=== PATIENT | male | born 1975 | race African-American/Black ===

== ENCOUNTER 2018-11-01 18:34 | Inpatient (IN) | payer OTHER ==
[~2018-11-01] VITALS: Ht 175.3 cm; Wt 76.2 kg
[2018-11-01] MEDS ORDERED: IV NORMAL SALINE 1000ML BAG 1,000 ML IV ONE ×3 (19:30→21:30)
[2018-11-01 19:33] LABS: BASO # 0.1 x10^3/uL (0.0-0.2); BASO % 1 % (0-3); EOS # 0.1 x10^3/uL (0.0-0.7); EOS % 1 % (0-3); HEMATOCRIT 45.5 % (39.0-53.0); LYMPH # 2.3 x10^3/uL (1.0-4.8); LYMPH % 17 % (24-48); MEAN CORPUSCULAR HEMOGLOBIN 31 pg (25-35); MEAN CORPUSCULAR HGB CONC 33 g/dL (31-37); MEAN CORPUSCULAR VOLUME 93 fL (79-100); MONO # 0.8 x10^3/uL (0.0-1.1); MONO % 6 % (0-9); NEUT # 10.9 x10^3/uL (1.8-7.7); NEUT % 77 % (31-73); PLATELET COUNT 552 x10^3/uL (140-400); RED BLOOD COUNT 4.89 x10^6/uL (4.30-5.70); RED CELL DISTRIBUTION WIDTH 15.1 % (11.5-14.5); WHITE BLOOD COUNT 14.2 x10^3/uL (4.0-11.0)
[2018-11-01 19:36] LABS: BILIRUBIN,URINE NEGATIVE (NEG); CLARITY,URINE CLEAR; COLOR,URINE YELLOW; NITRITE,URINE NEGATIVE (NEG); PROTEIN,URINE NEGATIVE (NEG-TRACE); UROBILINOGEN,URINE 0.2 mg/dL (0.2 mg/dL)
[2018-11-01 19:44] LABS: AMPHETAMINE/METHAMPHETAMINE NEG (NEG); BARBITURATES NEG (NEG); BENZODIAZEPINES NEG (NEG); CANNABINOIDS NEG (NEG); COCAINE NEG (NEG); METHADONE NEG (NEG); OPIATES NEG (NEG); PHENCYCLIDINE NEG (NEG)
[2018-11-01 19:51] LABS: BACTERIA,URINE 0 /HPF (0-FEW); RBC,URINE 0 /HPF (0-2); WBC,URINE 0 /HPF (0-4)
--- NOTE | 2018-11-01 20:01 | PHYS DOC ---
Past Medical History Past Medical History: Hypertension, Pancreatitis, Seizure Additional Past Medical Histor: PT DENIES (DANYA CHU APRN) Past Surgical History: No Surgical History Additional Past Surgical Histo: PT DENIES (DANYA CHU APRN) Alcohol Use: Occasionally Drug Use: None Social History Narrative: OLAMIDE STATES HE HAS NOT HAD A DRINK SINCE October (DANYA CHU APRN) Adult General Chief Complaint Chief Complaint: HYPERGLYCEMIA HPI HPI Patient is a 43 year old male with history of otitis, hypertension, alcohol abuse, seizures, who presents to the ED today to be evaluated for hyperglycemia, patient states he received a call from his doctor's office informing him his blood glucose was 1000, blood glucose was drawn yesterday. Patient denies the use of alcohol 10/17/2018. He states last week he was admitted at [facility] for pancreatitis. Denies any symptoms right now. (DANYA CHU APRN) Review of Systems Review of Systems Constitutional: Denies fever or chills [] Eyes: Denies change in visual acuity, redness, or eye pain [] HENT: Denies nasal congestion or sore throat [] Respiratory: Denies cough or shortness of breath [] Cardiovascular: No additional information not addressed in HPI [] GI: Denies abdominal pain, nausea, vomiting, bloody stools or diarrhea [] : Denies dysuria or hematuria [] Musculoskeletal: Denies back pain or joint pain [] Integument: Denies rash or skin lesions [] Neurologic: Denies headache, focal weakness or sensory changes [] Endocrine: Reports hyperglycemia All other systems were reviewed and found to be within normal limits, except as documented in this note. (DANYA CHU APRN) Current Medications Current Medications Current Medications Medications (Trade) Dose Ordered Sig/Juliann Start Time Stop Time Status Last Admin Dose Admin Insulin Human Regular 150 unit/ Sodium Chloride 151.5 ml @ 0 mls/hr CONT PRN PRN 11/01/18 21:15 11/02/18 14:51 DC 11/01/18 21:49 25.8 MLS/HR Potassium Chloride/Water 100 ml @ 100 mls/hr PRN Q1HR PRN 11/01/18 21:15 11/02/18 14:51 DC Sodium Chloride 1,000 ml @ 1,000 mls/hr 1X ONCE 11/01/18 21:30 11/01/18 22:29 DC 11/01/18 21:30 1,000 MLS/HR (RADHA LEAL MD) Physical Exam Physical Exam Constitutional: Well developed, well nourished, no acute distress, non-toxic appearance. [] HENT: Normocephalic, atraumatic, bilateral external ears normal, oropharynx moist, no oral exudates, nose normal. [] Eyes: PERRLA, EOMI, conjunctiva normal, no discharge. [] Neck: Normal range of motion, no tenderness, supple, no stridor. [] Cardiovascular:Heart rate regular rhythm, no murmur [] Lungs & Thorax: Bilateral breath sounds clear to auscultation [] Abdomen: Bowel sounds normal, soft, no tenderness, no masses, no pulsatile masses. [] Skin: Warm, dry, no erythema, no rash. [] Back: No tenderness, no CVA tenderness. [] Extremities: No tenderness, no cyanosis, no clubbing, ROM intact, no edema. [] Neurologic: Alert and oriented X 3, normal motor function, normal sensory function, no focal deficits noted. [] Psychologic: Affect normal, judgement normal, mood normal. [] (DANYA CHU APRN) Current Patient Data Vital Signs Vital Signs Date Time Temp Pulse Resp B/P (MAP) Pulse Ox O2 Delivery O2 Flow Rate FiO2 11/01/18 21:39 76 134/91 (105) 95 Room Air 11/01/18 20:09 18 11/01/18 18:44 97.7 97.7 (RADHA LEAL MD) Lab Values Laboratory Tests Test 11/01/18 18:50 White Blood Count 14.2 x10^3/uL (4.0-11.0) H Red Blood Count 4.89 x10^6/uL (4.30-5.70) Hemoglobin 15.0 g/dL (13.0-17.5) Hematocrit 45.5 % (39.0-53.0) Mean Corpuscular Volume 93 fL (79-100) Mean Corpuscular Hemoglobin 31 pg (25-35) Mean Corpuscular Hemoglobin Concent 33 g/dL (31-37) Red Cell Distribution Width 15.1 % (11.5-14.5) H Platelet Count 552 x10^3/uL (140-400) H Neutrophils (%) (Auto) 77 % (31-73) H Lymphocytes (%) (Auto) 17 % (24-48) L Monocytes (%) (Auto) 6 % (0-9) Eosinophils (%) (Auto) 1 % (0-3) Basophils (%) (Auto) 1 % (0-3) Neutrophils # (Auto) 10.9 x10^3/uL (1.8-7.7) H Lymphocytes # (Auto) 2.3 x10^3/uL (1.0-4.8) Monocytes # (Auto) 0.8 x10^3/uL (0.0-1.1) Eosinophils # (Auto) 0.1 x10^3/uL (0.0-0.7) Basophils # (Auto) 0.1 x10^3/uL (0.0-0.2) Urine Collection Type Unknown Urine Color Yellow Urine Clarity Clear Urine pH 5.0 Urine Specific [place] 1.025 Urine Protein Negative mg/dL (NEG-TRACE) Urine Glucose (UA) >=1000 mg/dL (NEG) Urine Ketones (Stick) Negative mg/dL (NEG) Urine Blood Negative (NEG) Urine Nitrite Negative (NEG) Urine Bilirubin Negative (NEG) Urine Urobilinogen Dipstick 0.2 mg/dL (0.2 mg/dL) Urine Leukocyte Esterase Negative (NEG) Urine RBC 0 /HPF (0-2) Urine WBC 0 /HPF (0-4) Urine Bacteria 0 /HPF (0-FEW) Sodium Level 107 mmol/L (136-145) *L Potassium Level 5.2 mmol/L (3.5-5.1) H Chloride Level 73 mmol/L (98-107) L Carbon Dioxide Level 17 mmol/L (21-32) L Anion Gap 17 (6-14) H Blood Urea Nitrogen 49 mg/dL (8-26) H Creatinine 2.7 mg/dL (0.7-1.3) H Estimated GFR (Cockcroft-Gault) 31.7 BUN/Creatinine Ratio 18 (6-20) Glucose Level 1352 mg/dL (70-99) *H Calcium Level 8.9 mg/dL (8.5-10.1) Phosphorus Level 4.1 mg/dL (2.6-4.7) Magnesium Level 2.4 mg/dL (1.8-2.4) Total Bilirubin 0.3 mg/dL (0.2-1.0) Aspartate Amino Transferase (AST) 22 U/L (15-37) Alanine Aminotransferase (ALT) 33 U/L (16-63) Alkaline Phosphatase 102 U/L (46-116) Total Protein 7.5 g/dL (6.4-8.2) Albumin 3.7 g/dL (3.4-5.0) Albumin/Globulin Ratio 1.0 (1.0-1.7) Lipase 317 U/L (73-393) Urine Opiates Screen Neg (NEG) Urine Methadone Screen Neg (NEG) Urine Barbiturates Neg (NEG) Urine Phencyclidine Screen Neg (NEG) Urine Amphetamine/Methamphetamine Neg (NEG) Urine Benzodiazepines Screen Neg (NEG) Urine Cocaine Screen Neg (NEG) Urine Cannabinoids Screen Neg (NEG) Ethyl Alcohol Level < 10 mg/dL (0-10) Urine Ethyl Alcohol Neg (NEG) Laboratory Tests 11/01/18 18:50 Laboratory Tests 11/01/18 18:50 (RADHA LEAL MD) EKG EKG [] (DANYA CHU APRN) Radiology/Procedures Radiology/Procedures [] (DANYA CHU APRN) Course & Med Decision Making Course & Med Decision Making Pertinent Labs and Imaging studies reviewed. (See chart for details) This is a 43-year-old male patient who presents to the ED today to be evaluated for hyperglycemia, patient's blood glucose was drawn yesterday at the PCPs office and it was 1000, patient has no previous history of diabetes. CBC with a WBC of 14.2, CMP with glucose of 1352, anion gap 17, BUN 59, creatinine 2.7, potassium 5.2, sodium 107 but corrected sodium around 300s. Urine analysis is negative for infection, negative for ketones. Patient was given 2 L of IV fluids on arrival to the ED. Third liter running. Labs were discussed with . Insulin drip ordered. Spoke with Dr. You who accepted patient for admission. (DANYA CHU APRN) Course & Med Decision Making Staff Physician Addendum: I was working in the ER during the course of this patient's visit. I was available for consultation as needed, but I was not directly involved in the care of this patient. Corrected sodium was actually around 130. appears hhnk not dka (RADHA LEAL MD) Dragon Disclaimer Dragon Disclaimer This electronic medical record was generated, in whole or in part, using a voice recognition dictation system. (DANYA CHU APRN) Departure Departure Impression: Primary Impression: Hyperglycemia Additional Impression: Acute renal failure Disposition: ADMITTED INPATIENT Condition: STABLE Referrals: NON,STAFF (PCP) Problem Qualifiers Additional Impression: Acute renal failure Acute renal failure type: unspecified Qualified Codes: N17.9 - Acute kidney failure, unspecified DANYA CHU APRN Nov 01, 2018 20:01 RADHA LEAL MD Nov 03, 2018 05:24
[2018-11-01 20:44] LABS: ALBUMIN 3.7 g/dL (3.4-5.0); CALCIUM 8.9 mg/dL (8.5-10.1); CREATININE 2.7 mg/dL (0.7-1.3); GFR 31.7; POTASSIUM 5.2 mmol/L (3.5-5.1); TOTAL BILIRUBIN 0.3 mg/dL (0.2-1.0); TOTAL PROTEIN 7.5 g/dL (6.4-8.2)
[2018-11-01] MEDS ORDERED: POTASSIUM CHLORIDE 10MEQ 100 ML IV PRN (21:15)
[2018-11-01] MEDS ORDERED: INSULIN REGULAR VIAL 150 UNIT in 0.9 % SODIUM CHLORIDE 150ML 150 ML IV PRN (21:15)
[2018-11-01] MEDS ORDERED: ACETAMINOPHEN 325 MG TABLET. PO PRN (22:00)
[2018-11-01] MEDS ORDERED: IV NORMAL SALINE 1000ML BAG 1,000 ML IV SCH (22:00)
[2018-11-01] MEDS ORDERED: MORPHINE SULFATE 2 MG/ML VIAL. IV PRN (22:00)
[2018-11-01] MEDS ORDERED: ONDANSETRON PF 4 MG/2 ML VIAL. IV PRN (22:00)
[2018-11-01] MEDS: POTASSIUM CHLORIDE 10MEQ 100 ML IV PRN ×3 (22:11→22:12)
[2018-11-01 22:29] LABS: MAGNESIUM 2.4 mg/dL (1.8-2.4); PHOSPHORUS 4.1 mg/dL (2.6-4.7)
[2018-11-01 23:15] VITALS: BP 151/85
--- NOTE | 2018-11-01 23:15 | NUR ---
patient on unit, brought from ED on bed and and accompanied by Hamida ED RN. Pt in DKA protocol, ordered by ED practitioner. Pt's at bedside at time of admission. Admission questions completed with the exception of the medication reconciliation as the patient could not remember his medications.
[2018-11-02] VITALS (17 sets, daily range): BP systolic 105–156; BP diastolic 71–111
[2018-11-02 00:06] LABS: CALCIUM 8.9 mg/dL (8.5-10.1); CREATININE 2.2 mg/dL (0.7-1.3); GFR 40.1; MAGNESIUM 2.4 mg/dL (1.8-2.4); POTASSIUM 3.5 mmol/L (3.5-5.1)
[2018-11-02] MEDS ORDERED: SODIUM PHOSPHATE 20 MMOL in IV DEXTROSE 5% 250 ML IV PRN (00:15)
[2018-11-02] MEDS: POTASSIUM CHLORIDE 10MEQ 100 ML IV PRN ×4 (00:36→03:27)
[2018-11-02] MEDS: IV DEXTROSE 5% - 0.9 % NACL 1,000 ML IV SCH ×3 (03:18→11:24)
[2018-11-02 06:32] LABS: BASO # 0.1 x10^3/uL (0.0-0.2); BASO % 0 % (0-3); EOS # 0.2 x10^3/uL (0.0-0.7); EOS % 1 % (0-3); HEMATOCRIT 40.7 % (39.0-53.0); LYMPH # 3.1 x10^3/uL (1.0-4.8); LYMPH % 25 % (24-48); MEAN CORPUSCULAR HEMOGLOBIN 29 pg (25-35); MEAN CORPUSCULAR HGB CONC 34 g/dL (31-37); MEAN CORPUSCULAR VOLUME 85 fL (79-100); MONO # 0.7 x10^3/uL (0.0-1.1); MONO % 6 % (0-9); NEUT # 8.4 x10^3/uL (1.8-7.7); NEUT % 68 % (31-73); PLATELET COUNT 487 x10^3/uL (140-400); RED BLOOD COUNT 4.78 x10^6/uL (4.30-5.70); RED CELL DISTRIBUTION WIDTH 14.6 % (11.5-14.5); WHITE BLOOD COUNT 12.5 x10^3/uL (4.0-11.0)
[2018-11-02 06:55] LABS: CALCIUM 8.1 mg/dL (8.5-10.1); CREATININE 1.5 mg/dL (0.7-1.3); GFR 62.4; POTASSIUM 3.1 mmol/L (3.5-5.1)
[2018-11-02] MEDS: POTASSIUM CHLORIDE 10MEQ 100 ML IV SCH ×4 (07:46→11:24)
[2018-11-02] MEDS ORDERED: IV NORMAL SALINE 1000ML BAG 1,000 ML IV SCH (09:00)
[2018-11-02] MEDS ORDERED: THIAMINE INJ 100 MG in IV DEXTROSE 5% 50 ML IV SCH (09:00)
[2018-11-02] MEDS ORDERED: AMLO10TA8 PO (09:12)
[2018-11-02] MEDS ORDERED: THIA100T22 PO (09:12)
[2018-11-02] MEDS ORDERED: MIRT15TA3 PO (09:12)
[2018-11-02] MEDS ORDERED: CARV25TA2 PO (09:12)
[2018-11-02] MEDS ORDERED: LOSA100T14 PO (09:12)
[2018-11-02] MEDS ORDERED: HYDR12.58 PO (09:12)
[2018-11-02 10:28] LABS: CREATININE 1.3 mg/dL (0.7-1.3); GFR 73.6; POTASSIUM 3.5 mmol/L (3.5-5.1)
--- NOTE | 2018-11-02 10:32 | PDOC2 ---
CONSULT Date of Consult Date of Consult DATE: 11/02/18 TIME: 10:26 Reason for Consult Reason for Consult: VINCE AND ELECTROLYTE IMBALANCE Referring Physician Referring Physician: HANNY Identification/Chief Complaint Chief Complaint BAD LABS Source Source: Chart review, Patient History of Present Illness Reason for Visit: THIS IS A 43 YR OLD WHO WAS ASKED TO COME TO THE HOSPITAL BASED ON OP LABS SHOWING A BG OF OVER 1000. THIS WAS CONFIRMED ON THE ER LABS AND HE WAS NOTED TO HAVE A BG OF ABOUT 1300 AND A CR OF 2.7 WITH HYPONATREMIA AND NA OF 107 ON ADMI T. HIS IS IN THE ICU. UA NEG FOR KETONES. NO CKD HX NOTED. HAS NOTED INCREASING UO AND POOR INTAKE OF FOOD AND FLUIDS FOR SEVERAL DAYS. HAS HX OF ETOH ABUSE BUT STATES THAT HE HAS NOT HAD ANY ETOH IN MORE THAN A WEEK. MILD HYPERKALEMIA IS ALSO NOTED Past Medical History Cardiovascular: HTN Endocrine: Diabetes Family History Family History: Hypertension Social History <1 pack per day ALCOHOL: heavy Drugs: None Lives: with Family Current Problem List Problem List Problems Medical Problems: (1) Acute renal failure Status: Acute (2) Hyperglycemia Status: Acute Current Medications Current Medications Current Medications Sodium Chloride 1,000 ml @ 1,000 mls/hr 1X ONCE IV Last administered on 11/01/18at 19:30; Start 11/01/18 at 19:30; Stop 11/01/18 at 20:29; Status DC Sodium Chloride 1,000 ml @ 1,000 mls/hr 1X ONCE IV Last administered on 11/01/18at 19:30; Start 11/01/18 at 19:30; Stop 11/01/18 at 20:29; Status DC Sodium Chloride 1,000 ml @ 1,000 mls/hr 1X ONCE IV Last administered on 11/01/18at 21:30; Start 11/01/18 at 21:30; Stop 11/01/18 at 22:29; Status DC Sodium Chloride 1,000 ml @ 1,000 mls/hr Q1H IV Last administered on 11/01/18at 22:00; Start 11/01/18 at 22:00; Stop 11/01/18 at 22:01; Status DC Insulin Human Regular 150 unit/ Sodium Chloride 151.5 ml @ 0 mls/hr CONT PRN PRN IV PER PROTOCOL Last administered on 11/01/18at 21:49; Start 11/01/18 at 21:15 Potassium Chloride/Water 100 ml @ 100 mls/hr PRN Q1HR PRN IV SEE COMMENTS Last administered on 11/02/18at 01:44; Start 11/01/18 at 21:15 Potassium Chloride/Water 100 ml @ 100 mls/hr PRN Q1HR PRN IV SEE COMMENTS Last administered on 11/02/18at 03:27; Start 11/01/18 at 21:15 Potassium Chloride/Water 100 ml @ 100 mls/hr PRN Q1HR PRN IV SEE COMMENTS; Start 11/01/18 at 21:15 Ondansetron HCl (Zofran) 4 mg PRN Q8HRS PRN IV NAUSEA/VOMITING 1ST CHOICE; Start 11/01/18 at 22:00; Stop 11/02/18 at 21:59 Morphine Sulfate (Morphine Sulfate) 2 mg PRN Q2HR PRN IV SEVERE PAIN 7-10; Start 11/01/18 at 22:00; Stop 11/02/18 at 21:59 Acetaminophen (Tylenol) 650 mg PRN Q4HRS PRN PO FEVER; Start 11/01/18 at 22:00; Stop 11/02/18 at 21:59 Thiamine HCl 100 mg/Dextrose 51 ml @ 102 mls/hr DAILY IV Last administered on 11/02/18at 09:34; Start 11/02/18 at 09:00; Stop 11/02/18 at 09:29; Status DC Sodium Chloride 1,000 ml @ 200 mls/hr Q5H IV Last administered on 11/01/18at 23:15; Start 11/02/18 at 09:00; Stop 11/02/18 at 09:00; Status DC Sodium Phosphate 20 mmol/Dextrose 256.6667 ml @ 62.5 mls/hr 1X PRN PRN IV SEE COMMENTS Last administered on 11/02/18at 00:36; Start 11/02/18 at 00:15 Dextrose/Sodium Chloride 1,000 ml @ 250 mls/hr Q4H IV Last administered on 11/02/18at 07:32; Start 11/02/18 at 03:15 Potassium Chloride/Water 100 ml @ 100 mls/hr Q1HR IV Last administered on 11/02/18at 09:51; Start 11/02/18 at 08:00; Stop 11/02/18 at 11:59 Active Scripts Active Reported Hydrochlorothiazide Tablet (Hydrochlorothiazide) 12.5 Mg Tablet 12.5 Mg PO DAILY Mirtazapine 15 Mg Tablet 15 Mg PO DAILY Amlodipine Besylate 10 Mg Tablet 10 Mg PO DAILY Vitamin B-1 (Thiamine Mononitrate) 100 Mg Tablet 100 Mg PO DAILY Carvedilol 25 Mg Tablet 25 Mg PO BID Losartan Potassium 100 Mg Tablet 100 Mg PO DAILY Allergies Allergies: Coded Allergies: lisinopril (Unverified Allergy, Severe, angioedema, 11/02/18) ROS General: YES: Fatigue PSYCHOLOGICAL ROS: YES: Anxiety Eyes: Yes Blurry vision, Yes Decreased vision HEENT: YES: [place]acaches Respiratory: YES: Cough Cardiovascular: yes Chest Pain Gastrointestinal: Yes Constipation Genitourinary: YES Other Musculoskeletal: Yes Muscular Weakness Neurological: Yes Confusion Skin: Yes Dry Skin Physical Exam General: Alert, Cooperative, No acute distress HEENT: Atraumatic, PERRLA, EOMI, Other (DRY MUCOSA) Lungs: Clear to auscultation Heart: Regular rate Abdomen: Normal bowel sounds, Soft Extremities: No clubbing, No cyanosis, No edema Skin: No rashes, No breakdown Neuro: Other (SOME CONFUSION, NO ASYMMETRY) Psych/Mental Status: Other ( ABOVE) MUSCULOSKELETAL: No deformity, No swelling Vitals VITALS Vital Signs Date Time Temp Pulse Resp B/P (MAP) Pulse Ox O2 Delivery O2 Flow Rate FiO2 11/02/18 10:00 72 17 136/74 (94) 100 Room Air 11/02/18 07:00 97.7 97.7 Labs Labs Laboratory Tests Test 11/01/18 18:50 11/01/18 22:54 11/01/18 23:30 11/01/18 23:58 White Blood Count 14.2 x10^3/uL (4.0-11.0) Red Blood Count 4.89 x10^6/uL (4.30-5.70) Hemoglobin 15.0 g/dL (13.0-17.5) Hematocrit 45.5 % (39.0-53.0) Mean Corpuscular Volume 93 fL (79-100) Mean Corpuscular Hemoglobin 31 pg (25-35) Mean Corpuscular Hemoglobin Concent 33 g/dL (31-37) Red Cell Distribution Width 15.1 % (11.5-14.5) Platelet Count 552 x10^3/uL (140-400) Neutrophils (%) (Auto) 77 % (31-73) Lymphocytes (%) (Auto) 17 % (24-48) Monocytes (%) (Auto) 6 % (0-9) Eosinophils (%) (Auto) 1 % (0-3) Basophils (%) (Auto) 1 % (0-3) Neutrophils # (Auto) 10.9 x10^3/uL (1.8-7.7) Lymphocytes # (Auto) 2.3 x10^3/uL (1.0-4.8) Monocytes # (Auto) 0.8 x10^3/uL (0.0-1.1) Eosinophils # (Auto) 0.1 x10^3/uL (0.0-0.7) Basophils # (Auto) 0.1 x10^3/uL (0.0-0.2) Urine Collection Type Unknown Urine Color Yellow Urine Clarity Clear Urine pH 5.0 Urine Specific [place] 1.025 Urine Protein Negative mg/dL (NEG-TRACE) Urine Glucose (UA) >=1000 mg/dL (NEG) Urine Ketones (Stick) Negative mg/dL (NEG) Urine Blood Negative (NEG) Urine Nitrite Negative (NEG) Urine Bilirubin Negative (NEG) Urine Urobilinogen Dipstick 0.2 mg/dL (0.2 mg/dL) Urine Leukocyte Esterase Negative (NEG) Urine RBC 0 /HPF (0-2) Urine WBC 0 /HPF (0-4) Urine Bacteria 0 /HPF (0-FEW) Sodium Level 107 mmol/L (136-145) 127 mmol/L (136-145) Potassium Level 5.2 mmol/L (3.5-5.1) 3.5 mmol/L (3.5-5.1) Chloride Level 73 mmol/L (98-107) 91 mmol/L (98-107) Carbon Dioxide Level 17 mmol/L (21-32) 19 mmol/L (21-32) Anion Gap 17 (6-14) 17 (6-14) Blood Urea Nitrogen 49 mg/dL (8-26) 41 mg/dL (8-26) Creatinine 2.7 mg/dL (0.7-1.3) 2.2 mg/dL (0.7-1.3) Estimated GFR (Cockcroft-Gault) 31.7 40.1 BUN/Creatinine Ratio 18 (6-20) Glucose Level 1352 mg/dL (70-99) 544 mg/dL (70-99) Calcium Level 8.9 mg/dL (8.5-10.1) 8.9 mg/dL (8.5-10.1) Phosphorus Level 4.1 mg/dL (2.6-4.7) 1.6 mg/dL (2.6-4.7) Magnesium Level 2.4 mg/dL (1.8-2.4) 2.4 mg/dL (1.8-2.4) Total Bilirubin 0.3 mg/dL (0.2-1.0) Aspartate Amino Transf (AST/SGOT) 22 U/L (15-37) Alanine Aminotransferase (ALT/SGPT) 33 U/L (16-63) Alkaline Phosphatase 102 U/L (46-116) Total Protein 7.5 g/dL (6.4-8.2) Albumin 3.7 g/dL (3.4-5.0) Albumin/Globulin Ratio 1.0 (1.0-1.7) Lipase 317 U/L (73-393) Urine Opiates Screen Neg (NEG) Urine Methadone Screen Neg (NEG) Urine Barbiturates Neg (NEG) Urine Phencyclidine Screen Neg (NEG) Urine Amphetamine/Methamphetamine Neg (NEG) Urine Benzodiazepines Screen Neg (NEG) Urine Cocaine Screen Neg (NEG) Urine Cannabinoids Screen Neg (NEG) Ethyl Alcohol Level < 10 mg/dL (0-10) Urine Ethyl Alcohol Neg (NEG) Glucose (Fingerstick) 571 mg/dL (70-99) 413 mg/dL (70-99) Amylase Level 72 U/L (25-115) Test 11/02/18 01:01 11/02/18 02:06 11/02/18 03:08 11/02/18 04:12 Glucose (Fingerstick) 301 mg/dL (70-99) 250 mg/dL (70-99) 204 mg/dL (70-99) 235 mg/dL (70-99) Test 11/02/18 05:17 11/02/18 05:55 11/02/18 06:21 11/02/18 07:36 Glucose (Fingerstick) 211 mg/dL (70-99) 168 mg/dL (70-99) 136 mg/dL (70-99) White Blood Count 12.5 x10^3/uL (4.0-11.0) Red Blood Count 4.78 x10^6/uL (4.30-5.70) Hemoglobin 14.0 g/dL (13.0-17.5) Hematocrit 40.7 % (39.0-53.0) Mean Corpuscular Volume 85 fL (79-100) Mean Corpuscular Hemoglobin 29 pg (25-35) Mean Corpuscular Hemoglobin Concent 34 g/dL (31-37) Red Cell Distribution Width 14.6 % (11.5-14.5) Platelet Count 487 x10^3/uL (140-400) Neutrophils (%) (Auto) 68 % (31-73) Lymphocytes (%) (Auto) 25 % (24-48) Monocytes (%) (Auto) 6 % (0-9) Eosinophils (%) (Auto) 1 % (0-3) Basophils (%) (Auto) 0 % (0-3) Neutrophils # (Auto) 8.4 x10^3/uL (1.8-7.7) Lymphocytes # (Auto) 3.1 x10^3/uL (1.0-4.8) Monocytes # (Auto) 0.7 x10^3/uL (0.0-1.1) Eosinophils # (Auto) 0.2 x10^3/uL (0.0-0.7) Basophils # (Auto) 0.1 x10^3/uL (0.0-0.2) Sodium Level 134 mmol/L (136-145) Potassium Level 3.1 mmol/L (3.5-5.1) Chloride Level 99 mmol/L (98-107) Carbon Dioxide Level 20 mmol/L (21-32) Anion Gap 15 (6-14) Blood Urea Nitrogen 29 mg/dL (8-26) Creatinine 1.5 mg/dL (0.7-1.3) Estimated GFR (Cockcroft-Gault) 62.4 Glucose Level 209 mg/dL (70-99) Calcium Level 8.1 mg/dL (8.5-10.1) Phosphorus Level 3.0 mg/dL (2.6-4.7) Magnesium Level 2.0 mg/dL (1.8-2.4) Test 11/02/18 08:44 11/02/18 09:48 Glucose (Fingerstick) 134 mg/dL (70-99) 120 mg/dL (70-99) Laboratory Tests Test 11/01/18 18:50 11/01/18 22:54 11/01/18 23:30 11/01/18 23:58 White Blood Count 14.2 x10^3/uL (4.0-11.0) Red Blood Count 4.89 x10^6/uL (4.30-5.70) Hemoglobin 15.0 g/dL (13.0-17.5) Hematocrit 45.5 % (39.0-53.0) Mean Corpuscular Volume 93 fL (79-100) Mean Corpuscular Hemoglobin 31 pg (25-35) Mean Corpuscular Hemoglobin Concent 33 g/dL (31-37) Red Cell Distribution Width 15.1 % (11.5-14.5) Platelet Count 552 x10^3/uL (140-400) Neutrophils (%) (Auto) 77 % (31-73) Lymphocytes (%) (Auto) 17 % (24-48) Monocytes (%) (Auto) 6 % (0-9) Eosinophils (%) (Auto) 1 % (0-3) Basophils (%) (Auto) 1 % (0-3) Neutrophils # (Auto) 10.9 x10^3/uL (1.8-7.7) Lymphocytes # (Auto) 2.3 x10^3/uL (1.0-4.8) Monocytes # (Auto) 0.8 x10^3/uL (0.0-1.1) Eosinophils # (Auto) 0.1 x10^3/uL (0.0-0.7) Basophils # (Auto) 0.1 x10^3/uL (0.0-0.2) Urine Collection Type Unknown Urine Color Yellow Urine Clarity Clear Urine pH 5.0 Urine Specific [place] 1.025 Urine Protein Negative mg/dL (NEG-TRACE) Urine Glucose (UA) >=1000 mg/dL (NEG) Urine Ketones (Stick) Negative mg/dL (NEG) Urine Blood Negative (NEG) Urine Nitrite Negative (NEG) Urine Bilirubin Negative (NEG) Urine Urobilinogen Dipstick 0.2 mg/dL (0.2 mg/dL) Urine Leukocyte Esterase Negative (NEG) Urine RBC 0 /HPF (0-2) Urine WBC 0 /HPF (0-4) Urine Bacteria 0 /HPF (0-FEW) Sodium Level 107 mmol/L (136-145) 127 mmol/L (136-145) Potassium Level 5.2 mmol/L (3.5-5.1) 3.5 mmol/L (3.5-5.1) Chloride Level 73 mmol/L (98-107) 91 mmol/L (98-107) Carbon Dioxide Level 17 mmol/L (21-32) 19 mmol/L (21-32) Anion Gap 17 (6-14) 17 (6-14) Blood Urea Nitrogen 49 mg/dL (8-26) 41 mg/dL (8-26) Creatinine 2.7 mg/dL (0.7-1.3) 2.2 mg/dL (0.7-1.3) Estimated GFR (Cockcroft-Gault) 31.7 40.1 BUN/Creatinine Ratio 18 (6-20) Glucose Level 1352 mg/dL (70-99) 544 mg/dL (70-99) Calcium Level 8.9 mg/dL (8.5-10.1) 8.9 mg/dL (8.5-10.1) Phosphorus Level 4.1 mg/dL (2.6-4.7) 1.6 mg/dL (2.6-4.7) Magnesium Level 2.4 mg/dL (1.8-2.4) 2.4 mg/dL (1.8-2.4) Total Bilirubin 0.3 mg/dL (0.2-1.0) Aspartate Amino Transf (AST/SGOT) 22 U/L (15-37) Alanine Aminotransferase (ALT/SGPT) 33 U/L (16-63) Alkaline Phosphatase 102 U/L (46-116) Total Protein 7.5 g/dL (6.4-8.2) Albumin 3.7 g/dL (3.4-5.0) Albumin/Globulin Ratio 1.0 (1.0-1.7) Lipase 317 U/L (73-393) Urine Opiates Screen Neg (NEG) Urine Methadone Screen Neg (NEG) Urine Barbiturates Neg (NEG) Urine Phencyclidine Screen Neg (NEG) Urine Amphetamine/Methamphetamine Neg (NEG) Urine Benzodiazepines Screen Neg (NEG) Urine Cocaine Screen Neg (NEG) Urine Cannabinoids Screen Neg (NEG) Ethyl Alcohol Level < 10 mg/dL (0-10) Urine Ethyl Alcohol Neg (NEG) Glucose (Fingerstick) 571 mg/dL (70-99) 413 mg/dL (70-99) Amylase Level 72 U/L (25-115) Test 11/02/18 01:01 11/02/18 02:06 11/02/18 03:08 11/02/18 04:12 Glucose (Fingerstick) 301 mg/dL (70-99) 250 mg/dL (70-99) 204 mg/dL (70-99) 235 mg/dL (70-99) Test 11/02/18 05:17 11/02/18 05:55 11/02/18 06:21 11/02/18 07:36 Glucose (Fingerstick) 211 mg/dL (70-99) 168 mg/dL (70-99) 136 mg/dL (70-99) White Blood Count 12.5 x10^3/uL (4.0-11.0) Red Blood Count 4.78 x10^6/uL (4.30-5.70) Hemoglobin 14.0 g/dL (13.0-17.5) Hematocrit 40.7 % (39.0-53.0) Mean Corpuscular Volume 85 fL (79-100) Mean Corpuscular Hemoglobin 29 pg (25-35) Mean Corpuscular Hemoglobin Concent 34 g/dL (31-37) Red Cell Distribution Width 14.6 % (11.5-14.5) Platelet Count 487 x10^3/uL (140-400) Neutrophils (%) (Auto) 68 % (31-73) Lymphocytes (%) (Auto) 25 % (24-48) Monocytes (%) (Auto) 6 % (0-9) Eosinophils (%) (Auto) 1 % (0-3) Basophils (%) (Auto) 0 % (0-3) Neutrophils # (Auto) 8.4 x10^3/uL (1.8-7.7) Lymphocytes # (Auto) 3.1 x10^3/uL (1.0-4.8) Monocytes # (Auto) 0.7 x10^3/uL (0.0-1.1) Eosinophils # (Auto) 0.2 x10^3/uL (0.0-0.7) Basophils # (Auto) 0.1 x10^3/uL (0.0-0.2) Sodium Level 134 mmol/L (136-145) Potassium Level 3.1 mmol/L (3.5-5.1) Chloride Level 99 mmol/L (98-107) Carbon Dioxide Level 20 mmol/L (21-32) Anion Gap 15 (6-14) Blood Urea Nitrogen 29 mg/dL (8-26) Creatinine 1.5 mg/dL (0.7-1.3) Estimated GFR (Cockcroft-Gault) 62.4 Glucose Level 209 mg/dL (70-99) Calcium Level 8.1 mg/dL (8.5-10.1) Phosphorus Level 3.0 mg/dL (2.6-4.7) Magnesium Level 2.0 mg/dL (1.8-2.4) Test 11/02/18 08:44 11/02/18 09:48 Glucose (Fingerstick) 134 mg/dL (70-99) 120 mg/dL (70-99) Assessment/Plan Assessment/Plan IMP DEHYDRATION VINCE DUE TO ABOVE SEVERE HYPONATREMIA HYPEROSMOTIC NON KETOTIC HYPERGLYCEMIA HYPERKALEMIA PLAN HYDRATION INSULIN REPLACE K NEEDED WILL FOLLOW MAHIN HENDRIX MD Nov 02, 2018 10:32
[2018-11-02] MEDS ORDERED: DEXTROSE 50% 25 GM / 50ML DISP.SYRIN. IV PRN ×2 (11:15→11:45)
--- NOTE | 2018-11-02 11:41 | PDOC ---
Provider Note Provider Note Pt seen in ICU.H&P dictated. #[id number]. ANAMIKA GODINEZ MD Nov 02, 2018 11:41
[2018-11-02] MEDS ORDERED: LIDOCAINE 2% VISCOUS 15 ML SOLUTION. SWSW PRN (11:45)
[2018-11-02] MEDS: INSULIN LISPRO 300 UNITS/3 ML INSULN.PEN. SQ SCH ×2 (12:00→17:39)
--- NOTE | 2018-11-02 12:11 | HP ---
ADMIT DATE: 11/01/2018 PATIENT LOCATION: Room #103. REASON FOR ADMISSION TO THE HOSPITAL: Blood sugars 1300, low sodium of 107, and creatinine of 2.7. The patient not known to be diabetic in the past. HISTORY OF PRESENT ILLNESS: The patient is a 43-year-old male, patient of Dr. Ricardo Baird. The patient was recently at [facility], which was a 1 week ago and at that time was found to have acute pancreatitis and he was discharged, seen Dr. Baird in the office, day before yesterday had a routine blood test done and the lab called that his blood sugar was 1300. The patient was asked to come to the Emergency Room, came to the ER and his blood sugar was 1352, sodium was 107, has anion gap of 17, bicarbonate of 17, chloride of 73. The patient was given fluids, insulin bolus and started on insulin drip and was admitted to the ICU and Renal was consulted. The patient was put on insulin drip and this morning, his sodium came down nicely and anion gap come down nicely. Blood sugars around 150. PAST MEDICAL HISTORY: As mentioned, the patient is pretty good health. He has been under stress with the family illness and he was admitted to last week for pancreatitis secondary to alcohol problem. PAST SURGICAL HISTORY: No surgeries. ALLERGIES: LISINOPRIL. MEDICATIONS AT HOME: Coreg, hydrochlorothiazide, losartan, mirtazapine, thiamine, amlodipine 10 mg daily. PERSONAL HISTORY: He has been drinking heavily lately. Last drink was 2 weeks ago. REVIEW OF SYSTEMS: Denies any chest pain, shortness of breath. Otherwise, he feels better than last week when he was at . PHYSICAL EXAMINATION: GENERAL: The patient is not in any distress, seen in the ICU. VITAL SIGNS: At the time of admission shows temperature 97, pulse 91, respirations 16, blood pressure 156/88, and 98 on room air. HEENT: Head is atraumatic. Pupils equal. Oral cavity: No congestion. NECK: Supple. Thyroid not enlarged. JVD not elevated. CHEST: Symmetrical. CARDIOVASCULAR: S1, S2. LUNGS: Clear. ABDOMEN: Soft, bowel sounds present, no mass palpable. EXTERNAL GENITALIA: No Domingo. RECTAL: Deferred. EXTREMITIES: No calf tenderness, no edema. Pulses 1+. NEUROLOGIC: Moving all extremities. No focal deficit noted. LABORATORY DATA: Shows sodium 107, potassium 5.2, chloride 73, bicarbonate 17, anion gap 17, BUN 49, creatinine 2.7, glucose 1352. White count 14, hemoglobin 15, platelets 552. Urine shows more than 1000 sugar. Toxicology was negative. FINAL IMPRESSION: 1. Uncontrolled blood sugars, new onset.BS 1300 2. Non ketotic Metabolic acidosis with increased anion gap. 3. Acute kidney insufficiency. 4. Hyponatremia. 5. History of recent pancreatitis. 6. New onset of Diabetes . PLAN: At this time, the patient was admitted to the ICU, was given fluid bolus, started on normal saline and insulin drip. Electrolytes being monitored and replace potassium and magnesium and monitor anion gap and a renal consult and see how the patient's condition improves in the next 24-48 hours. ANAMIKA GODINEZ MD DR: YFN/celso JOB#: [id number] / [id number] RICARDO Don MD MTDD
--- NOTE | 2018-11-02 12:54 | RAD ---
PROCEDURE: PORTABLE CHEST 1V CLINICAL INDICATION: Diabetic ketoacidosis. COMPARISON: 12/28/2013 FINDINGS: No pneumothorax identified. Cardiac and mediastinal contours unremarkable. No pulmonary consolidation or acute airspace disease. No acute osseous abnormalities identified. IMPRESSION: No pulmonary consolidation or acute airspace disease. Electronically signed by: Asad Baird DO (11/02/2018 12:50 PM) [facility]
[2018-11-02 13:33] LABS: CALCIUM 8.1 mg/dL (8.5-10.1); CREATININE 1.1 mg/dL (0.7-1.3); GFR 89.3; MAGNESIUM 1.7 mg/dL (1.8-2.4); POTASSIUM 3.6 mmol/L (3.5-5.1)
--- NOTE | 2018-11-02 13:42 | EKG ---
[facility] [address] [place] [address] Test Date: 2018-11-01 Test Time: 21:18:43 Pat Name: JACOB MATSON Department: Room: Gender: M Patternmaker: : 1975 Requested By: DANYA CHU Order Number: [id number] Reading MD: Measurements Intervals Corinne Rate: 75 P: 52 RI: 154 QRS: -10 QRSD: 80 T: 17 QT: 416 QTc: 467 Interpretive Statements SINUS RHYTHM LEFT ATRIAL ABNORMALITY LEFTWARD AXIS NON SPECIFIC ST-T ABNORMALITY (ELEVATION) ABNORMAL ECG No previous ECG available for comparison
[2018-11-02] MEDS ORDERED: INSULIN LISPRO 300 UNITS/3 ML INSULN.PEN. SQ SCH (16:00)
--- NOTE | 2018-11-02 16:34 | NUR ---
report received from TRIP Perez in ICU. pt moved to room 572. oriented to room and call light. denies needs at this time. mealtime glucose 277
[2018-11-02] MEDS ORDERED: INSULIN GLARGINE 300 UNITS/3 ML INSULN.PEN. SQ SCH (21:00)
[2018-11-02] MEDS ORDERED: ACETAMINOPHEN 325 MG TABLET. PO PRN (22:15)
[2018-11-02] MEDS ORDERED: diphenhydrAMINE 50 MG/ML VIAL IVP PRN (22:15)
[2018-11-02] MEDS ORDERED: ONDANSETRON PF 4 MG/2 ML VIAL. IV PRN (22:15)
[2018-11-02] MEDS ORDERED: diphenhydrAMINE HCL 25 MG CAPSULE PO PRN (22:15)
--- NOTE | 2018-11-02 22:15 | NUR ---
Dr. You returned page. Ordered 10 units humalog x1 for blood glucose of 366. Also restarted pt's home meds. BP meds to be started tonight for BP of 150/111. Meds to be given once pharmacy reconciles meds.
[2018-11-02] MEDS ORDERED: INSULIN LISPRO 300 UNITS/3 ML INSULN.PEN. SQ ONE (22:30)
[2018-11-02] MEDS: LOSARTAN POTASSIUM 50 MG TABLET. PO SCH (22:42)
[2018-11-02] MEDS: amLODIPine BESYLATE 10 MG TABLET PO SCH (22:42)
[2018-11-02] MEDS: CARVEDILOL 12.5 MG TABLET. PO SCH (22:43)
[2018-11-03 02:47] VITALS: BP 109/66
[2018-11-03 06:33] LABS: BASO # 0.1 x10^3/uL (0.0-0.2); BASO % 1 % (0-3); EOS # 0.2 x10^3/uL (0.0-0.7); EOS % 1 % (0-3); HEMATOCRIT 41.5 % (39.0-53.0); HEMOGLOBIN 13.8 g/dL (13.0-17.5); LYMPH % 28 % (24-48); MEAN CORPUSCULAR HEMOGLOBIN 29 pg (25-35); MEAN CORPUSCULAR HGB CONC 33 g/dL (31-37); MEAN CORPUSCULAR VOLUME 86 fL (79-100); MONO # 0.7 x10^3/uL (0.0-1.1); MONO % 7 % (0-9); NEUT # 6.9 x10^3/uL (1.8-7.7); NEUT % 64 % (31-73); PLATELET COUNT 478 x10^3/uL (140-400); RED BLOOD COUNT 4.84 x10^6/uL (4.30-5.70); RED CELL DISTRIBUTION WIDTH 14.5 % (11.5-14.5); WHITE BLOOD COUNT 10.9 x10^3/uL (4.0-11.0)
[2018-11-03 06:36] VITALS: BP 140/91
[2018-11-03 06:47] LABS: CALCIUM 8.9 mg/dL (8.5-10.1); CREATININE 1.1 mg/dL (0.7-1.3); GFR 89.3; MAGNESIUM 1.6 mg/dL (1.8-2.4); PHOSPHORUS 3.6 mg/dL (2.6-4.7); POTASSIUM 4.1 mmol/L (3.5-5.1)
[2018-11-03 07:01] LABS: ALBUMIN 3.1 g/dL (3.4-5.0); ALBUMIN/GLOBULIN RATIO 0.8 (1.0-1.7); CALCIUM 8.7 mg/dL (8.5-10.1); CREATININE 1.1 mg/dL (0.7-1.3); GFR 89.3; POTASSIUM 3.5 mmol/L (3.5-5.1); TOTAL BILIRUBIN 0.5 mg/dL (0.2-1.0); TOTAL PROTEIN 6.9 g/dL (6.4-8.2)
[2018-11-03 07:04] LABS: CHOLESTEROL/HDL RATIO 7.3
[2018-11-03] MEDS: CARVEDILOL 12.5 MG TABLET. PO SCH ×2 (08:29→17:28)
[2018-11-03] MEDS: THIAMINE 100 MG TABLET. PO SCH (08:29)
[2018-11-03] MEDS: hydroCHLOROthiazide 12.5 MG CAPSULE PO SCH (08:29)
[2018-11-03] MEDS: LOSARTAN POTASSIUM 50 MG TABLET. PO SCH (08:30)
[2018-11-03] MEDS: amLODIPine BESYLATE 10 MG TABLET PO SCH (08:30)
[2018-11-03 08:31] LABS: PLT ESTIMATE INCREASED (ADEQUATE)
[2018-11-03] MEDS: INSULIN LISPRO 300 UNITS/3 ML INSULN.PEN. SQ SCH ×6 (08:40→20:40)
[2018-11-03] MEDS ORDERED: MAGNESIUM SULFATE 2GM 50 ML IV ONE (09:45)
--- NOTE | 2018-11-03 09:54 | PDOC ---
PROGRESS NOTES Subjective Subjective feeling much better today Objective Objective Vital Signs Date Time Temp Pulse Resp B/P (MAP) Pulse Ox O2 Delivery O2 Flow Rate FiO2 11/03/18 08:30 75 140/91 11/03/18 06:36 97.6 19 97 Room Air 97.6 Intake and Output 11/03/18 07:00 Intake Total 550 ml Output Total 625 ml Balance -75 ml Intake Oral 550 ml Output Urine Total 525 ml Emesis 100 ml Physical Exam Abdomen: Normal bowel sounds, Soft Heart: Regular rate Extremities: No clubbing, No cyanosis, No edema General: Alert, Cooperative, No acute distress HEENT: Atraumatic, PERRLA, EOMI, Other (DRY MUCOSA) Lungs: Clear to auscultation MUSCULOSKELETAL: No deformity, No swelling Neuro: Other (SOME CONFUSION, NO ASYMMETRY) Psych/Mental Status: Other ( ABOVE) Skin: No rashes, No breakdown Diagnosis Problem List Problems Medical Problems: (1) Acute renal failure Status: Acute (2) Hyperglycemia Status: Acute Assessment Assessment Problems Medical Problems: (1) Acute renal failure Status: Acute (2) Hyperglycemia Status: Acute FINAL IMPRESSION: 1. Uncontrolled blood sugars, new onset.BS 1300 2. Non ketotic Metabolic acidosis with increased anion gap. 3. Acute kidney insufficiency. 4. Hyponatremia. 5. History of recent pancreatitis. 6. New onset of Diabetes . PLAN: pt off insulin drip last evening moved out of icu. kidney function normal Na corrected wbc down BS 300 range started on Lantus and novolog Home in 1-2 days. At this time, the patient was admitted to the ICU, was given fluid bolus, started on normal saline and insulin drip. Electrolytes being monitored and replace potassium and magnesium and monitor anion gap and a renal consult and see how the patient's condition improves in the next 24-48 hours. Plan Plan of Care Problems Medical Problems: (1) Acute renal failure Status: Acute (2) Hyperglycemia Status: Acute Comment Review of Relevant I have reviewed the following items sunitha (where applicable) has been applied. Labs Laboratory Tests Test 11/02/18 10:05 11/02/18 10:54 11/02/18 12:01 11/02/18 13:05 Sodium Level 135 mmol/L (136-145) 136 mmol/L (136-145) Potassium Level 3.5 mmol/L (3.5-5.1) 3.6 mmol/L (3.5-5.1) Chloride Level 102 mmol/L (98-107) 103 mmol/L (98-107) Carbon Dioxide Level 21 mmol/L (21-32) 21 mmol/L (21-32) Anion Gap 12 (6-14) 12 (6-14) Blood Urea Nitrogen 22 mg/dL (8-26) 18 mg/dL (8-26) Creatinine 1.3 mg/dL (0.7-1.3) 1.1 mg/dL (0.7-1.3) Estimated GFR (Cockcroft-Gault) 73.6 89.3 Glucose Level 127 mg/dL (70-99) 147 mg/dL (70-99) Calcium Level 8.0 mg/dL (8.5-10.1) 8.1 mg/dL (8.5-10.1) Glucose (Fingerstick) 152 mg/dL (70-99) 129 mg/dL (70-99) Phosphorus Level 2.0 mg/dL (2.6-4.7) Magnesium Level 1.7 mg/dL (1.8-2.4) Test 11/02/18 15:03 11/02/18 16:30 11/02/18 20:13 11/02/18 21:52 Glucose (Fingerstick) 205 mg/dL (70-99) 277 mg/dL (70-99) 357 mg/dL (70-99) 366 mg/dL (70-99) Test 11/03/18 06:00 11/03/18 07:12 White Blood Count 10.9 x10^3/uL (4.0-11.0) Red Blood Count 4.84 x10^6/uL (4.30-5.70) Hemoglobin 13.8 g/dL (13.0-17.5) Hematocrit 41.5 % (39.0-53.0) Mean Corpuscular Volume 86 fL (79-100) Mean Corpuscular Hemoglobin 29 pg (25-35) Mean Corpuscular Hemoglobin Concent 33 g/dL (31-37) Red Cell Distribution Width 14.5 % (11.5-14.5) Platelet Count 478 x10^3/uL (140-400) Neutrophils (%) (Auto) 64 % (31-73) Lymphocytes (%) (Auto) 28 % (24-48) Monocytes (%) (Auto) 7 % (0-9) Eosinophils (%) (Auto) 1 % (0-3) Basophils (%) (Auto) 1 % (0-3) Neutrophils # (Auto) 6.9 x10^3/uL (1.8-7.7) Lymphocytes # (Auto) 3.0 x10^3/uL (1.0-4.8) Monocytes # (Auto) 0.7 x10^3/uL (0.0-1.1) Eosinophils # (Auto) 0.2 x10^3/uL (0.0-0.7) Basophils # (Auto) 0.1 x10^3/uL (0.0-0.2) Platelet Estimate Increased (ADEQUATE) Large Platelets Few Giant Platelets Few Sodium Level 132 mmol/L (136-145) Potassium Level 3.5 mmol/L (3.5-5.1) Chloride Level 97 mmol/L (98-107) Carbon Dioxide Level 22 mmol/L (21-32) Anion Gap 13 (6-14) Blood Urea Nitrogen 11 mg/dL (8-26) Creatinine 1.1 mg/dL (0.7-1.3) Estimated GFR (Cockcroft-Gault) 89.3 BUN/Creatinine Ratio 10 (6-20) Glucose Level 327 mg/dL (70-99) Calcium Level 8.7 mg/dL (8.5-10.1) Phosphorus Level 3.6 mg/dL (2.6-4.7) Magnesium Level 1.6 mg/dL (1.8-2.4) Total Bilirubin 0.5 mg/dL (0.2-1.0) Aspartate Amino Transf (AST/SGOT) 26 U/L (15-37) Alanine Aminotransferase (ALT/SGPT) 33 U/L (16-63) Alkaline Phosphatase 68 U/L (46-116) Total Protein 6.9 g/dL (6.4-8.2) Albumin 3.1 g/dL (3.4-5.0) Albumin/Globulin Ratio 0.8 (1.0-1.7) Triglycerides Level 554 mg/dL (0-150) Cholesterol Level 161 mg/dL (0-200) LDL Cholesterol, Calculated 28 mg/dL (0-100) VLDL Cholesterol, Calculated 111 mg/dL (0-40) Non-HDL Cholesterol Calculated 139 mg/dL (0-129) HDL Cholesterol 22 mg/dL (40-60) Cholesterol/HDL Ratio 7.3 Glucose (Fingerstick) 370 mg/dL (70-99) Medications Current Medications Acetaminophen (Tylenol) 650 mg PRN Q6HRS PRN PO MILD PAIN / TEMP; Start 11/02/18 at 22:15 Amlodipine Besylate (Norvasc) 10 mg DAILY PO Last administered on 11/03/18at 08:30; Start 11/02/18 at 23:00 Carvedilol (Coreg) 25 mg BIDWMEALS PO Last administered on 11/03/18at 08:29; Start 11/02/18 at 23:00 Dextrose (Dextrose 50%-Water Syringe) 12.5 gm PRN Q15MIN PRN IV SEE COMMENTS; Start 11/02/18 at 11:15; Stop 11/02/18 at 15:40; Status DC Dextrose (Dextrose 50%-Water Syringe) 12.5 gm PRN Q15MIN PRN IV SEE COMMENTS; Start 11/02/18 at 11:45 Diphenhydramine HCl (Benadryl) 25 mg PRN Q6HRS PRN IVP ITCHING; Start 11/02/18 at 22:15 Diphenhydramine HCl (Benadryl) 25 mg PRN Q6HRS PRN PO ITCHING; Start 11/02/18 at 22:15 Hydrochlorothiazide (Microzide) 12.5 mg DAILY PO Last administered on 11/03/18at 08:29; Start 11/03/18 at 09:00 Insulin Glargine (Lantus) 10 units QHS SQ Last administered on 11/02/18at 20:36; Start 11/02/18 at 21:00; Stop 11/03/18 at 08:11; Status DC Insulin Glargine (Lantus) 20 units QHS SQ ; Start 11/03/18 at 21:00 Insulin Human Lispro (HumaLOG) 0-9 UNITS TIDWMEALS SQ Last administered on 11/03/18at 08:40; Start 11/02/18 at 12:00 Insulin Human Lispro (HumaLOG) 0-9 UNITS TIDWMEALS SQ ; Start 11/02/18 at 16:00; Status Cancel Insulin Human Lispro (HumaLOG) 10 units 1X ONCE SQ Last administered on 11/02/18at 22:48; Start 11/02/18 at 22:30; Stop 11/02/18 at 22:31; Status DC Insulin Human Lispro (HumaLOG) 10 units TIDWMEALS SQ Last administered on 11/03/18at 08:40; Start 11/03/18 at 08:15 Lidocaine HCl (Viscous Lidocaine) 15 ml PRN Q4HRS PRN SWSW MOUTH PAIN; Start 11/02/18 at 11:45 Losartan Potassium (Cozaar) 100 mg DAILY PO Last administered on 11/03/18at 08:30; Start 11/02/18 at 23:00 Mirtazapine (Remeron) 15 mg QHS PO ; Start 11/03/18 at 21:00 Ondansetron HCl (Zofran) 4 mg PRN Q6HRS PRN IV NAUSEA/VOMITING 1ST CHOICE; Start 11/02/18 at 22:15 Thiamine Mononitrate (Vitamin B-1) 100 mg DAILY PO Last administered on 11/03/18at 08:29; Start 11/03/18 at 09:00 Vitals/I & O Vital Sign - Last 24 Hours 11/02/18 11/02/18 11/02/18 11/02/18 10:00 11:00 12:00 12:00 Temp 98.5 98.5 Pulse 72 75 66 Resp 17 20 B/P (MAP) 136/74 (94) 129/84 (99) 129/89 (102) Pulse Ox 100 100 100 O2 Delivery Room Air Room Air Room Air Room Air 11/02/18 11/02/18 11/02/18 11/02/18 13:00 14:00 15:00 19:00 Temp 98.3 98.3 Pulse 74 67 68 75 Resp 23 18 B/P (MAP) 134/89 (104) 155/96 (115) 141/95 (110) 156/98 (117) Pulse Ox 100 99 99 96 O2 Delivery Room Air Room Air Room Air Room Air 11/02/18 11/02/18 11/02/18 11/02/18 19:05 22:42 22:42 22:43 Pulse 83 83 83 B/P (MAP) 150/111 150/111 150/111 O2 Delivery Room Air 11/02/18 11/03/18 11/03/18 11/03/18 23:02 02:47 06:36 08:29 Temp 98.6 98.6 97.6 98.6 98.6 97.6 Pulse 83 67 75 75 Resp 16 17 19 B/P (MAP) 150/111 (124) 109/66 (80) 140/91 (107) 140/91 Pulse Ox 98 100 97 O2 Delivery Room Air Room Air Room Air 11/03/18 11/03/18 08:30 08:30 Pulse 75 75 B/P (MAP) 140/91 140/91 Intake and Output 11/02/18 11/02/18 11/03/18 15:00 23:00 07:00 Intake Total 0 ml 500 ml 50 ml Output Total 525 ml 100 ml Balance -525 ml 500 ml -50 ml ANAMIKA GODINEZ MD Nov 03, 2018 09:54
[2018-11-03 11:00] VITALS: BP 146/92
--- NOTE | 2018-11-03 11:01 | PDOC ---
Renal-Progress Notes Subjective Notes Notes FEELING BETTER History of Present Illness Hx of present illness STABLE Vitals Vitals Vital Signs Date Time Temp Pulse Resp B/P (MAP) Pulse Ox O2 Delivery O2 Flow Rate FiO2 11/03/18 08:30 75 140/91 11/03/18 08:00 Room Air 11/03/18 06:36 97.6 19 97 97.6 Weight Weight [ ] I.O. Intake and Output Intake and Output 11/03/18 06:59 Intake Total 550 ml Output Total 625 ml Balance -75 ml Intake Oral 550 ml Output Urine Total 525 ml Emesis 100 ml Labs Labs Laboratory Tests Test 11/02/18 12:01 11/02/18 13:05 11/02/18 15:03 11/02/18 16:30 Glucose (Fingerstick) 129 mg/dL (70-99) 205 mg/dL (70-99) 277 mg/dL (70-99) Sodium Level 136 mmol/L (136-145) Potassium Level 3.6 mmol/L (3.5-5.1) Chloride Level 103 mmol/L (98-107) Carbon Dioxide Level 21 mmol/L (21-32) Anion Gap 12 (6-14) Blood Urea Nitrogen 18 mg/dL (8-26) Creatinine 1.1 mg/dL (0.7-1.3) Estimated GFR (Cockcroft-Gault) 89.3 Glucose Level 147 mg/dL (70-99) Calcium Level 8.1 mg/dL (8.5-10.1) Phosphorus Level 2.0 mg/dL (2.6-4.7) Magnesium Level 1.7 mg/dL (1.8-2.4) Test 11/02/18 20:13 11/02/18 21:52 11/03/18 06:00 11/03/18 07:12 Glucose (Fingerstick) 357 mg/dL (70-99) 366 mg/dL (70-99) 370 mg/dL (70-99) White Blood Count 10.9 x10^3/uL (4.0-11.0) Red Blood Count 4.84 x10^6/uL (4.30-5.70) Hemoglobin 13.8 g/dL (13.0-17.5) Hematocrit 41.5 % (39.0-53.0) Mean Corpuscular Volume 86 fL (79-100) Mean Corpuscular Hemoglobin 29 pg (25-35) Mean Corpuscular Hemoglobin Concent 33 g/dL (31-37) Red Cell Distribution Width 14.5 % (11.5-14.5) Platelet Count 478 x10^3/uL (140-400) Neutrophils (%) (Auto) 64 % (31-73) Lymphocytes (%) (Auto) 28 % (24-48) Monocytes (%) (Auto) 7 % (0-9) Eosinophils (%) (Auto) 1 % (0-3) Basophils (%) (Auto) 1 % (0-3) Neutrophils # (Auto) 6.9 x10^3/uL (1.8-7.7) Lymphocytes # (Auto) 3.0 x10^3/uL (1.0-4.8) Monocytes # (Auto) 0.7 x10^3/uL (0.0-1.1) Eosinophils # (Auto) 0.2 x10^3/uL (0.0-0.7) Basophils # (Auto) 0.1 x10^3/uL (0.0-0.2) Platelet Estimate Increased (ADEQUATE) Large Platelets Few Giant Platelets Few Sodium Level 132 mmol/L (136-145) Potassium Level 3.5 mmol/L (3.5-5.1) Chloride Level 97 mmol/L (98-107) Carbon Dioxide Level 22 mmol/L (21-32) Anion Gap 13 (6-14) Blood Urea Nitrogen 11 mg/dL (8-26) Creatinine 1.1 mg/dL (0.7-1.3) Estimated GFR (Cockcroft-Gault) 89.3 BUN/Creatinine Ratio 10 (6-20) Glucose Level 327 mg/dL (70-99) Calcium Level 8.7 mg/dL (8.5-10.1) Phosphorus Level 3.6 mg/dL (2.6-4.7) Magnesium Level 1.6 mg/dL (1.8-2.4) Total Bilirubin 0.5 mg/dL (0.2-1.0) Aspartate Amino Transf (AST/SGOT) 26 U/L (15-37) Alanine Aminotransferase (ALT/SGPT) 33 U/L (16-63) Alkaline Phosphatase 68 U/L (46-116) Total Protein 6.9 g/dL (6.4-8.2) Albumin 3.1 g/dL (3.4-5.0) Albumin/Globulin Ratio 0.8 (1.0-1.7) Triglycerides Level 554 mg/dL (0-150) Cholesterol Level 161 mg/dL (0-200) LDL Cholesterol, Calculated 28 mg/dL (0-100) VLDL Cholesterol, Calculated 111 mg/dL (0-40) Non-HDL Cholesterol Calculated 139 mg/dL (0-129) HDL Cholesterol 22 mg/dL (40-60) Cholesterol/HDL Ratio 7.3 Review of Systems Constitutional: yes: weakness, alert, oriented Ears/Nose/Throat: Yes: no symptom reported Eyes: Yes: no symptom reported Pulmonary: Yes no symptom reported Cardiovascular: Yes no symptom reported Gastrointestional: Yes: no symptom reported Genitourinary: Yes: no symptom reported Musculoskeletal: Yes: no symptom reported Skin: Yes no symptom reported Psychiatric/Neurological: Yes: no symptom reported Endocrine: Yes: no symptom reported Physical Exam General Appearance: no apparent distress Skin: warm Respiratory: decreased breath sounds Heart: S1S2 Abdomen: soft, bowel sounds present Extremities: pulses present Neurology: alert, oriented Assessment Assessment IMP DEHYDRATION VINCE NEARLY RESOLVED SEVERE HYPONATREMIA-NEARLY RESOLVED HYPEROSMOTIC NON KETOTIC HYPERGLYCEMIA HYPERKALEMIA PLAN HYDRATION INSULIN WILL SIGN OFF MAHIN HENDRIX MD Nov 03, 2018 11:01
[2018-11-03 15:00] VITALS: BP 123/90
[2018-11-03 19:00] VITALS: BP 131/93
[2018-11-03] MEDS: MIRTAZAPINE 15 MG TABLET PO SCH (20:32)
[2018-11-03] MEDS ORDERED: INSULIN GLARGINE 300 UNITS/3 ML INSULN.PEN. SQ SCH (21:00)
[2018-11-03 23:09] VITALS: BP 117/86
[2018-11-04 01:11] LABS: HEMOGLOBIN A1C 10.9 % (4.8-5.6)
[2018-11-04 03:00] VITALS: BP 118/82
[2018-11-04 03:46] LABS: BASO # 0.1 x10^3/uL (0.0-0.2); BASO % 1 % (0-3); EOS # 0.2 x10^3/uL (0.0-0.7); EOS % 1 % (0-3); HEMATOCRIT 44.5 % (39.0-53.0); HEMOGLOBIN 15.2 g/dL (13.0-17.5); LYMPH % 34 % (24-48); MEAN CORPUSCULAR HEMOGLOBIN 30 pg (25-35); MEAN CORPUSCULAR HGB CONC 34 g/dL (31-37); MEAN CORPUSCULAR VOLUME 87 fL (79-100); MONO # 0.8 x10^3/uL (0.0-1.1); MONO % 7 % (0-9); NEUT # 6.7 x10^3/uL (1.8-7.7); NEUT % 57 % (31-73); PLATELET COUNT 479 x10^3/uL (140-400); RED BLOOD COUNT 5.14 x10^6/uL (4.30-5.70); WHITE BLOOD COUNT 11.8 x10^3/uL (4.0-11.0)
[2018-11-04 04:14] LABS: ALBUMIN 3.5 g/dL (3.4-5.0); ALBUMIN/GLOBULIN RATIO 0.8 (1.0-1.7); CALCIUM 9.6 mg/dL (8.5-10.1); CREATININE 1.3 mg/dL (0.7-1.3); GFR 73.6; MAGNESIUM 1.9 mg/dL (1.8-2.4); POTASSIUM 3.3 mmol/L (3.5-5.1); TOTAL BILIRUBIN 0.3 mg/dL (0.2-1.0); TOTAL PROTEIN 7.8 g/dL (6.4-8.2)
[2018-11-04 07:00] VITALS: BP 150/100
[2018-11-04] MEDS: amLODIPine BESYLATE 10 MG TABLET PO SCH (07:45)
[2018-11-04] MEDS: THIAMINE 100 MG TABLET. PO SCH (07:45)
[2018-11-04] MEDS: hydroCHLOROthiazide 12.5 MG CAPSULE PO SCH (07:45)
[2018-11-04] MEDS: CARVEDILOL 12.5 MG TABLET. PO SCH ×2 (07:46→16:44)
[2018-11-04] MEDS: LOSARTAN POTASSIUM 50 MG TABLET. PO SCH (07:46)
[2018-11-04] MEDS: INSULIN LISPRO 300 UNITS/3 ML INSULN.PEN. SQ SCH ×6 (07:53→16:57)
--- NOTE | 2018-11-04 09:26 | PDOC ---
IM PROGRESS NOTES- Subjective Subjective No complaints of pain or dyspnea. Objective Vitals/I&O Vital Signs Date Time Temp Pulse Resp B/P (MAP) Pulse Ox O2 Delivery O2 Flow Rate FiO2 11/04/18 07:46 89 150/100 11/04/18 07:00 97.6 14 100 Room Air 97.6 I & O 11/03/18 11/03/18 11/04/18 15:00 23:00 07:00 Intake Total 850 ml 490 ml Balance 850 ml 490 ml Physical Exam Physical Exam General appearance - alert,well appearing, and in no distress and oriented to person, place, and time Mental Status - alert, oriented to person, place, and time, affect appropriate to mood Head - normal Chest - clear to auscultation, no wheezes, rales or rhonchi, symmetric air entry Heart - S1 and S2 normal Abdomen - soft, nontender, nondistended, no masses or organomegaly Neurological - alert and oriented Musculoskeletal - no muscular tenderness noted Extremities - no pedal edema Skin - warm and dry Labs Laboratory Tests Test 11/03/18 11:40 11/03/18 16:40 11/03/18 20:17 11/04/18 02:55 Glucose (Fingerstick) 288 mg/dL (70-99) H 159 mg/dL (70-99) H 305 mg/dL (70-99) H White Blood Count 11.8 x10^3/uL (4.0-11.0) H Red Blood Count 5.14 x10^6/uL (4.30-5.70) Hemoglobin 15.2 g/dL (13.0-17.5) Hematocrit 44.5 % (39.0-53.0) Mean Corpuscular Volume 87 fL (79-100) Mean Corpuscular Hemoglobin 30 pg (25-35) Mean Corpuscular Hemoglobin Concent 34 g/dL (31-37) Red Cell Distribution Width 15.0 % (11.5-14.5) H Platelet Count 479 x10^3/uL (140-400) H Neutrophils (%) (Auto) 57 % (31-73) Lymphocytes (%) (Auto) 34 % (24-48) Monocytes (%) (Auto) 7 % (0-9) Eosinophils (%) (Auto) 1 % (0-3) Basophils (%) (Auto) 1 % (0-3) Neutrophils # (Auto) 6.7 x10^3/uL (1.8-7.7) Lymphocytes # (Auto) 4.0 x10^3/uL (1.0-4.8) Monocytes # (Auto) 0.8 x10^3/uL (0.0-1.1) Eosinophils # (Auto) 0.2 x10^3/uL (0.0-0.7) Basophils # (Auto) 0.1 x10^3/uL (0.0-0.2) Sodium Level 133 mmol/L (136-145) L Potassium Level 3.3 mmol/L (3.5-5.1) L Chloride Level 95 mmol/L (98-107) L Carbon Dioxide Level 24 mmol/L (21-32) Anion Gap 14 (6-14) Blood Urea Nitrogen 14 mg/dL (8-26) Creatinine 1.3 mg/dL (0.7-1.3) Estimated GFR (Cockcroft-Gault) 73.6 BUN/Creatinine Ratio 11 (6-20) Glucose Level 346 mg/dL (70-99) H Calcium Level 9.6 mg/dL (8.5-10.1) Magnesium Level 1.9 mg/dL (1.8-2.4) Total Bilirubin 0.3 mg/dL (0.2-1.0) Aspartate Amino Transferase (AST) 31 U/L (15-37) Alanine Aminotransferase (ALT) 37 U/L (16-63) Alkaline Phosphatase 78 U/L (46-116) Total Protein 7.8 g/dL (6.4-8.2) Albumin 3.5 g/dL (3.4-5.0) Albumin/Globulin Ratio 0.8 (1.0-1.7) L Amylase Level 90 U/L (25-115) Lipase 285 U/L (73-393) Test 11/04/18 07:28 Glucose (Fingerstick) 352 mg/dL (70-99) H Laboratory Tests 11/04/18 02:55 Laboratory Tests 11/04/18 02:55 Meds Current Medications Medications (Trade) Dose Ordered Sig/Juliann Route PRN Reason Start Time Stop Time Status Last Admin Dose Admin Mirtazapine (Remeron) 15 mg QHS PO 11/03/18 21:00 11/03/18 20:32 Insulin Glargine (Lantus) 20 units QHS SQ 11/03/18 21:00 11/03/18 20:39 Magnesium Sulfate 50 ml @ 25 mls/hr 1X ONCE IV 11/03/18 09:45 11/03/18 11:44 DC 11/03/18 11:06 Assessment Assessment Problems Medical Problems: (1) Acute renal failure Status: Acute (2) Hyperglycemia Status: Acute FINAL IMPRESSION: 1. Uncontrolled blood sugars, new onset.BS 1300 2. Non ketotic Metabolic acidosis with increased anion gap. 3. Acute kidney insufficiency. 4. Hyponatremia. 5. History of recent pancreatitis. 6. New onset of Diabetes . PLAN: pt off insulin drip last evening moved out of icu. kidney function normal Na corrected wbc down BS 300 range started on Lantus and novolog At this time, the patient was admitted to the ICU, was given fluid bolus, started on normal saline and insulin drip. Electrolytes being monitored and replace potassium and magnesium and monitor anion gap and a renal consult and see how the patient's condition improves in the next 24-48 hours. Hypokalemia potassium is 3.3. Replace Hyponatremia- sodium is 133 improving. Acute renal failure improving. New-onset diabetes mellitus not controlled. Increase Lantus to 24 units subcutaneous daily and Humalog to 12 units subcutaneous 3 times a day before meals. Diabetes education and teach how to administer insulin and check blood sugars. If stable consider discharge tomorrow. Condition, treatment options extensively discussed with the patient. Diet discussed. Patient will also need to see the dietitian and it applications developer as outpatient. Plan Plan For more details regarding further plans, please refer to the orders. RICARDO GAMINO MD Nov 04, 2018 09:26
[2018-11-04] MEDS ORDERED: POTASSIUM CHLORIDE 20 MEQ TABLET.ER. PO ONE (10:30)
[2018-11-04 11:00] VITALS: BP 157/76
--- NOTE | 2018-11-04 12:59 | NUR ---
SW reviewed pt's medical chart and evaluated for potential dc needs. Pt is from home with spouse and was admitted for hypoglycemia. Pt is on room air and PT/OT have not been ordered. At this time, there are no dc needs. SW will continue to follow and be available if dc planning is required.
[2018-11-04 15:00] VITALS: BP 136/89
[2018-11-04 19:00] VITALS: BP 126/81
[2018-11-04] MEDS ORDERED: INSULIN GLARGINE 300 UNITS/3 ML INSULN.PEN. SQ SCH (21:00)
[2018-11-04] MEDS: MIRTAZAPINE 15 MG TABLET PO SCH (21:26)
[2018-11-04 23:00] VITALS: BP 132/87
[2018-11-05 03:00] VITALS: BP 121/82
[2018-11-05 04:39] LABS: BASO # 0.1 x10^3/uL (0.0-0.2); BASO % 1 % (0-3); EOS # 0.2 x10^3/uL (0.0-0.7); EOS % 2 % (0-3); HEMATOCRIT 44.3 % (39.0-53.0); HEMOGLOBIN 14.9 g/dL (13.0-17.5); LYMPH # 4.1 x10^3/uL (1.0-4.8); LYMPH % 33 % (24-48); MEAN CORPUSCULAR HEMOGLOBIN 29 pg (25-35); MEAN CORPUSCULAR HGB CONC 34 g/dL (31-37); MEAN CORPUSCULAR VOLUME 87 fL (79-100); MONO # 0.8 x10^3/uL (0.0-1.1); MONO % 7 % (0-9); NEUT % 58 % (31-73); PLATELET COUNT 421 x10^3/uL (140-400); RED BLOOD COUNT 5.11 x10^6/uL (4.30-5.70); RED CELL DISTRIBUTION WIDTH 14.8 % (11.5-14.5); WHITE BLOOD COUNT 12.2 x10^3/uL (4.0-11.0)
[2018-11-05 05:03] LABS: CALCIUM 9.2 mg/dL (8.5-10.1); CREATININE 1.1 mg/dL (0.7-1.3); GFR 89.3; MAGNESIUM 1.7 mg/dL (1.8-2.4); POTASSIUM 3.1 mmol/L (3.5-5.1)
[2018-11-05 07:00] VITALS: BP 123/72
[2018-11-05] MEDS: CARVEDILOL 12.5 MG TABLET. PO SCH (09:18)
[2018-11-05] MEDS: amLODIPine BESYLATE 10 MG TABLET PO SCH (09:19)
[2018-11-05] MEDS: THIAMINE 100 MG TABLET. PO SCH (09:19)
[2018-11-05] MEDS: hydroCHLOROthiazide 12.5 MG CAPSULE PO SCH (09:19)
[2018-11-05] MEDS: LOSARTAN POTASSIUM 50 MG TABLET. PO SCH (09:20)
[2018-11-05] MEDS: INSULIN LISPRO 300 UNITS/3 ML INSULN.PEN. SQ SCH ×4 (09:23→12:09)
[2018-11-05] MEDS ORDERED: INSU100I13 SQ (10:28)
[2018-11-05] MEDS ORDERED: POTA20TA82 PO (10:28)
[2018-11-05] MEDS ORDERED: INSU100I11 SQ (10:28)
[2018-11-05] MEDS ORDERED: POTASSIUM CHLORIDE 20 MEQ TABLET.ER. PO ONE (10:30)
--- NOTE | 2018-11-05 10:31 | DISCH ---
DISCHARGE INSTRUCTIONS Condition on Discharge Condition on Discharge: Stable Activity After Discharge Activity Instructions for Disc: Resume previous activity Diet after Discharge Diet after Discharge: Diabetic No Calorie Level Diet Texture: Regular Checks after Discharge Checks after discharge: Check blood sugar, ac/hs Contacting the [facility] after DC Call your doctor for: Concerns you may have Follow-Up Follow up with: Dr. RICARDO Gamino on Sunday RICARDO GAMINO MD Nov 05, 2018 10:31
[2018-11-05 11:00] VITALS: BP 125/68
--- NOTE | 2018-11-05 11:44 | PDOC3 ---
IM DISCHARGE SUMMARY Date of Admission Date of Admission Date of Admission: Nov 01, 2018 at 21:53 Date of Discharge Date of Discharge November 05, 2018 Primary Diagnosis Primary Diagnosis 1. Uncontrolled diabetes mellitus new-onset. Nonketotic hyperosmolar 2. Non ketotic Metabolic acidosis with increased anion gap. 3. Acute renal failure 4. Hyponatremia. 5. History of recent pancreatitis. 6. Hypokalemia 7. Leukocytosis reactive Consults Consults Suad Tao MD Labs Labs Laboratory Tests Test 11/04/18 11:39 11/04/18 16:40 11/04/18 17:53 11/04/18 21:09 Glucose (Fingerstick) 244 mg/dL (70-99) H 107 mg/dL (70-99) H 154 mg/dL (70-99) H 190 mg/dL (70-99) H Test 11/05/18 03:55 11/05/18 07:52 White Blood Count 12.2 x10^3/uL (4.0-11.0) H Red Blood Count 5.11 x10^6/uL (4.30-5.70) Hemoglobin 14.9 g/dL (13.0-17.5) Hematocrit 44.3 % (39.0-53.0) Mean Corpuscular Volume 87 fL (79-100) Mean Corpuscular Hemoglobin 29 pg (25-35) Mean Corpuscular Hemoglobin Concent 34 g/dL (31-37) Red Cell Distribution Width 14.8 % (11.5-14.5) H Platelet Count 421 x10^3/uL (140-400) H Neutrophils (%) (Auto) 58 % (31-73) Lymphocytes (%) (Auto) 33 % (24-48) Monocytes (%) (Auto) 7 % (0-9) Eosinophils (%) (Auto) 2 % (0-3) Basophils (%) (Auto) 1 % (0-3) Neutrophils # (Auto) 7.0 x10^3/uL (1.8-7.7) Lymphocytes # (Auto) 4.1 x10^3/uL (1.0-4.8) Monocytes # (Auto) 0.8 x10^3/uL (0.0-1.1) Eosinophils # (Auto) 0.2 x10^3/uL (0.0-0.7) Basophils # (Auto) 0.1 x10^3/uL (0.0-0.2) Sodium Level 137 mmol/L (136-145) Potassium Level 3.1 mmol/L (3.5-5.1) L Chloride Level 99 mmol/L (98-107) Carbon Dioxide Level 24 mmol/L (21-32) Anion Gap 14 (6-14) Blood Urea Nitrogen 14 mg/dL (8-26) Creatinine 1.1 mg/dL (0.7-1.3) Estimated GFR (Cockcroft-Gault) 89.3 Glucose Level 175 mg/dL (70-99) H Calcium Level 9.2 mg/dL (8.5-10.1) Magnesium Level 1.7 mg/dL (1.8-2.4) L Glucose (Fingerstick) 187 mg/dL (70-99) H Laboratory Tests 11/05/18 03:55 Laboratory Tests 11/05/18 03:55 Brief hospital course Brief hospital course The patient is a 43-year-old male, patient of Dr. Ricardo Gamino. The patient was recently at [facility], which was a 1 week ago and at that time was found to have acute pancreatitis and he was discharged, seen Dr. Gamino in the office, day before yesterday had a routine blood test done and the lab called that his blood sugar was 1300. The patient was asked to come to the Emergency Room, came to the ER and his blood sugar was 1352, sodium was 107, has anion gap of 17, bicarbonate of 17, chloride of 73. The patient was given fluids, insulin bolus and started on insulin drip and was admitted to the ICU and Renal was consulted. The patient was put on insulin drip and this morning, his sodium came down nicely and anion gap come down nicely. Blood sugars around 150. For more details regarding the past history, family history, social history, surgical history and other details, please refer to History and Physical. The patient was admitted to the ICU, was given fluid bolus, started on normal saline and insulin drip. Electrolytes being monitored and replace potassium and magnesium and monitor anion gap and a renal consult and see how the patient's condition improves in the next 24-48 hours. Hypokalemia potassium is 3.3. Replace Hyponatremia- sodium is 133 improving. Acute renal failure improving. New-onset diabetes mellitus not controlled. Increase Lantus to 24 units subcutaneous daily and Humalog to 12 units subcutaneous 3 times a day before meals. Diabetes education and teach how to administer insulin and check blood sugars. If stable consider discharge tomorrow. Condition, treatment options extensively discussed with the patient. Diet discussed. 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 Diabetes education including administration of insulin checking blood sugars treatment and symptoms and signs of her hypoglycemia holding insulin if blood sugar below 100, necessary prescriptions including for the glucose monitor, lancets, lancet device and insulin were given to the patient. See me in the office in 3 days. Hopefully if he continues to improve then we will be able to decrease the dose of insulin and consider stopping it if he completely recovers. Medications Current Medications Medications (Trade) Dose Ordered Sig/Juliann Route PRN Reason Start Time Stop Time Status Last Admin Dose Admin Insulin Glargine (Lantus) 24 units QHS SQ 11/04/18 21:00 11/04/18 21:39 Insulin Human Lispro (HumaLOG) 12 units TIDWMEALS SQ 11/04/18 12:00 11/05/18 09:24 Medications reviewed and reconciled for discharge. Allergy Allergies Coded Allergies Type Severity Reaction Last Updated Verified lisinopril Allergy Severe angioedema 11/02/18 No Follow up in 5 days. DISPOSITION: Home Comments Discharge Management - 35 minutes. For other details please refer to discharge instructions RICARDO GAMINO MD Nov 05, 2018 11:44
--- NOTE | 2018-11-05 13:42 | NUR ---
Discharge Note: PT DISCHARGED HOME WITH SELF CARE. PT LEFT FACILITY VIA PRIVATE VEHICLE WITH FRIEND AT 1345. PT STABLE AND ALERT UPON DISCHARGE. PT PIV'S REMOVED FROM R AND L FA WITHOUT COMPLICATIONS, BANDAGE APPLIED. PT EDUCATED EXTENSIVELY ABOUT INSULIN ADMINISTRATION, DOSAGE INSTRUCTIONS, BLOOD SUGAR CHECKS, AND SIGNS/SYMPTOMS OF HYPERGLYCEMIA/HYPOGLYCEMIA, INTERVENTIONS TO CORRECT HYPOGLYCEMIA, FOLLOW-UP INSTRUCTIONS, AND DISCHARGE INSTRUCTIONS. PT VOICED NO CONCERNS AT THIS TIME. JACOB MATSON Discharge instructions and discharge home medications reviewed with Patient and a copy given. All questions have been answered and understanding verbalized.
== END 2018-11-05 13:46 | disposition home or self-care (01) | DRG 682 ==
LOC: ER 18:34 → 1 WEST ICU 21:53 → 5 SOUTH 11-02 15:40
PROVIDERS: ADMIT Internal Medicine; ATTEND Internal Medicine
DX: N17.9 Acute kidney failure, unspecified (principal); E11.00 Type 2 diabetes mellitus with hyperosmolarity without nonketotic hyperglycemic-hyperosmolar coma (NKHHC); E87.1 Hypo-osmolality and hyponatremia; E87.2 Acidosis; E11.65 Type 2 diabetes mellitus with hyperglycemia; E86.0 Dehydration; E87.5 Hyperkalemia; E87.6 Hypokalemia; I10 Essential (primary) hypertension; F17.210 Nicotine dependence, cigarettes, uncomplicated; Z82.49 Family history of ischemic heart disease and other diseases of the circulatory system; Z79.899 Other long term (current) drug therapy; Z88.8 Allergy status to other drugs, medicaments and biological substances
CPT/HCPCS: 36415; 71045; 80048; 80053; 80061; 80307; 81001; 82150; 82962; 83036; 83690; 83735; 84100; 85025; 87641; 93005; 96361; 96365; 96366; G0480; J1815; J2405; J3475; J3480; J7030; J7042; 99285-25